=== PATIENT | female | born 1950 | race Caucasian/White ===

== ENCOUNTER → 2020-09-19 11:32 | Outpatient (BNVA) | payer OTHER, SELFPAY | PROVIDERS: PCP Family Medicine; Referring Provider Family Medicine; Visit Provider Nurse Practitioner | DX: R29.90 Unspecified symptoms and signs involving the nervous system (principal); R41.89 Other symptoms and signs involving cognitive functions and awareness | CPT/HCPCS: 96116; 99204 ==